=== PATIENT | female | born 1995 ===

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

== ENCOUNTER 2017-03-05 07:32 | Emergency (ER) | payer BC ==
[2017-03-05 07:48] VITALS: BP 126/83
--- NOTE | 2017-03-05 12:05 | UC ---
Ja Lane Matthew, scribed for Jacqueline Funez MD on 03/05/17 at 0803 . Eye Complaint HPI - HPI Summary HPI Summary: A 22 y/o female presents to with right eye pain since yesterday. She states that she slept with her makeup on last night. Associated symptoms include right eye discharge since this morning, right eyelid swelling, pruritic left eye since this morning, and dry cough. She denies abdominal pain. The patient has also had a sore throat for the past 2 days. - History of Current Complaint Chief Complaint: UCEye Stated Complaint: SORE THROAT EYE ISSUE Hx Obtained From: Patient Hx Last Menstrual Period: UNSURE-ARM IMPLANT ?: No Onset/Duration: Gradual Onset, Lasting Days, Still Present Timing: Constant Severity Initially: Mild Severity Currently: Mild Location of Injury: Conjunctiva Associated Signs And Symptoms: Positive: Swelling - Right eye - Allergies/Home Medications Allergies/Adverse Reactions: Allergies Allergy/AdvReac Type Severity Reaction Status Date / Time No Known Allergies Allergy Verified 12/03/16 07:22 PMH/Surg Hx/FS Hx/Imm Hx Previously Healthy: Yes Endocrine History Of: Denies: Diabetes, Thyroid Disease Cardiovascular History Of: Denies: Cardiac Disorders, Hypertension Respiratory History Of: Reports: Asthma - sports induced, not using inhaler Denies: COPD GI/ History Of: Denies: Ulcer - Surgical History Surgical History: None - Family History Known Family History: Negative: Cardiac Disease, Hypertension, Diabetes - Social History Alcohol Use: Occasionally Substance Use Type: None Smoking Status (MU): Never Smoked Tobacco - Immunization History Most Recent Influenza Vaccination: none Review of Systems Constitutional: Negative Skin: Negative Eyes: Drainage - RT, Eye Redness - bilaterally, Other - right eyelid swelling ENT: Sore Throat Respiratory: Negative Cardiovascular: Negative Gastrointestinal: Negative Genitourinary: Negative Motor: Negative Neurovascular: Negative Musculoskeletal: Negative Neurological: Negative Psychological: Negative All Other Systems Reviewed And Are Negative: Yes Physical Exam Triage Information Reviewed: Yes Appearance: Well-Nourished Vital Signs: Initial Vital Signs Temp 97.9 F 03/05/17 07:37 Pulse 80 03/05/17 07:37 Resp 16 03/05/17 07:37 BP 126/83 03/05/17 07:37 Pulse Ox 98 03/05/17 07:37 Vital Signs Reviewed: Yes Eyes: Positive: Conjunctiva Inflamed - conjunctive injected 2+ right, 1+ left, Other: - right eyelid mildly swollen, PERRL, EMOI ENT: Positive: Pharyngeal erythema, Other: - quarles, retracted right ear; uvula midline; tongue not elevated; no sores. Negative: Tonsillar swelling, Tonsillar exudate Neck: Positive: Supple, Nontender, Other: - right sided lymphadenopathy Respiratory: Positive: Chest non-tender, Lungs clear, Normal breath sounds, No respiratory distress Cardiovascular: Positive: RRR, No Murmur, Pulses Normal, Brisk Capillary Refill Abdomen Description: Positive: Nontender, No Organomegaly, Soft Musculoskeletal Exam: Normal Musculoskeletal: Positive: Strength Intact Neurological Exam: Normal - nonfocal, grossly intact Psychological Exam: Normal - conversing easily and appropriately Skin Exam: Normal - no visible or reported rash Eye Complaint Course/Dx - Course Course Of Treatment: No new problems in CCC. RST neg. Reviewed tx / coa w/ pt. If sx do not improve, then recheck next week. Throw out and replace eye makeup. - Differential Dx/Diagnosis Provider Diagnoses: Pharyngitis, Conjunctivitis Discharge - Discharge Plan Condition: Stable Disposition: HOME Prescriptions: Azithromyxin CHIVO (NF) [Z-Chivo (Zithromax) 250 mg tabs #6] 2 tab PO .TODAY, THEN 1 DAILY #6 tab Ciprofloxacin 0.3% OPTH.MEL* [Cipro 0.3% Opth*] 2 drop BOTH EYES Q8H #1 btl Patient Education Materials: Pharyngitis (ED), Conjunctivitis (ED) Referrals: Non Staff,Doctor [Primary Care Provider] - Additional Instructions: Follow up with your primary care physician upon your return to [place]. Seek medical attention sooner for worse or new problems in the meantime. Please get rechecked if you are not better in the next week. The documentation as recorded by the Ja garcia Matthew accurately reflects the service I personally performed and the decisions made by me, Jacqueline Funez MD.
== END 2017-03-05 08:25 | disposition home or self-care (01) ==
LOC: UCEAST 07:32
DX: H10.33 Unspecified acute conjunctivitis, bilateral (principal); J02.9 Acute pharyngitis, unspecified; J45.909 Unspecified asthma, uncomplicated
CPT/HCPCS: 87651; 99212; G0463